=== PATIENT | male | born 1985 | race Caucasian/White ===

== ENCOUNTER 2022-08-09 06:49 | Inpatient (IN) | payer BC ==
[2022-08-02 15:44] LABS: BASOPHILS # (AUTO) 0.1 X10'3 (0-0.2); BASOPHILS % (AUTO) 0.6 % (0-1); EOSINOPHILS # (AUTO) 0.2 X10'3 (0-0.9); EOSINOPHILS % (AUTO) 1.6 % (0-6); LYMPHOCYTES # (AUTO) 2.7 X10'3 (1.1-4.8); MEAN CORPUSCULAR HEMOGLOBIN 28.1 PG (27.0-31.0); MEAN CORPUSCULAR HGB CONC 33.1 g/dL (33.0-36.5); MEAN PLATELET VOLUME 7.9 FL (7.4-10.4); MONOCYTES # (AUTO) 0.6 X10'3 (0-0.9); MONOCYTES % (AUTO) 5.9 % (2-12); NEUTROPHILS # (AUTO) 6.8 X10'3 (1.8-7.7); NEUTROPHILS % (AUTO) 65.9 % (42-75); PRE OP HEMATOCRIT 46.2 % (42.0-52.0); PRE OP HEMOGLOBIN 15.3 g/dL (14.0-17.9); PRE OP PLATELET COUNT 283 X10'3 (140-440); RED BLOOD COUNT 5.43 X10'6 (4.70-6.10); RED CELL DISTRIBUTION WIDTH 14.7 % (11.5-14.5)
[2022-08-02 16:14] LABS: ALBUMIN 3.9 G/DL (3.4-5.0); ALBUMIN/GLOBULIN RATIO 1.1 (1.1-1.5); ALKALINE PHOSPHATASE 63 IU/L (46-116); BLOOD UREA NITROGEN 11 MG/DL (7-18); BUN/CREATININE RATIO 14.1 (5.4-32.0); CHLORIDE 104 MMOL/L (99-107); CREATININE 0.78 MG/DL (0.60-1.10); PRE OP ALT 38 U/L (30-65); PRE OP ANION GAP 6 (8-16); PRE OP AST 23 U/L (10-37); PRE OP BILIRUB, TOTAL 0.3 MG/DL (0.0-1.0); PRE OP GLUCOSE 84 MG/DL (70-104); PRE OP SODIUM 138 MMOL/L (135-145); TOTAL CARBON DIOXIDE 27.6 MMOL/L (24-32); TOTAL PROTEIN 7.4 G/DL (6.4-8.2); eGFR > 90 ML/MIN
[~2022-08-09] VITALS: Ht 185.4 cm; Wt 131.9 kg
[2022-08-09] VITALS (27 sets, daily range): BP systolic 102–134; BP diastolic 66–95
[~2022-08-09 06:49] MED LIST: VALA10002 PO; ceFOXitin 2GM-NS 100mL ADDvant 100 ML IV ONE; famotidine 20mg tablet PO ONE; heparin, porcine 5000 units/ml vial SQ ONE; metroNIDAZOLE-Flagyl 500mg/NS 100ML IVPB IV ONE; ringers solution, lacted 1,000 ML IV SCH
[2022-08-09] MEDS ORDERED: LIDOcaine 1% 30ml preserv. free vial ONE (07:18)
[2022-08-09] MEDS ORDERED: tobramycin 40mg/ml inj ONE (07:18)
[2022-08-09] MEDS ORDERED: BUPIVAcaine 0.5% inj/PF 30 ML ONE (07:19)
[2022-08-09] MEDS ORDERED: povidone-iodine 10% ointment 1 APPLIC APPLIC TP ONE (07:50)
[2022-08-09] MEDS ORDERED: vancomycin/NS 1 GM ADD-VANTAGE 250 ML IV ONE (08:00)
[2022-08-09] MEDS ORDERED: VANCOMYCIN 1,500MG in normal saline IV soln 300 ML IV ONE (08:05)
[2022-08-09] MEDS ORDERED: proCHLORperazine 10 MG/2 ml inj IV PRN (08:10)
[2022-08-09] MEDS ORDERED: ondansetron/PF 4mg/2ml inj IV PRN ×2 (08:10→14:10)
[2022-08-09] MEDS ORDERED: meperidine/PF 25mg/ml syringe IV PRN ×2 (08:10)
[2022-08-09] MEDS ORDERED: morphine 4 MG/ML inj SYRINge IV PRN (08:10)
[2022-08-09] MEDS ORDERED: ringers solution, lacted 1,000 ML IV SCH (08:10)
[2022-08-09] MEDS ORDERED: morphine 2 MG/ML inj. syringe IV PRN (08:10)
[2022-08-09] MEDS ORDERED: sevoflurane 250ml liquid IH ONE (09:12)
[2022-08-09] MEDS ORDERED: dexamethasone sod phosphate 10mg/ml inj ONE (09:12)
[2022-08-09] MEDS ORDERED: rocuronium 10mg/ml inj IV ONE ×2 (09:12→09:33)
[2022-08-09] MEDS ORDERED: midazolam 1 mg/ML 2ml injection ONE (09:21)
[2022-08-09] MEDS ORDERED: fentaNYL /PF 50mcg/ml 5ml ampule ONE ×2 (09:22→11:51)
[2022-08-09] MEDS ORDERED: propofol inj 20 ML IV ONE (09:33)
[2022-08-09] MEDS ORDERED: LIDOcaine 2% (20mg/ml) 5ml vial ONE (09:33)
[2022-08-09] MEDS ORDERED: ondansetron/PF 4mg/2ml inj ONE (09:39)
[2022-08-09] MEDS ORDERED: LIDOCAINE 1%/EPI 1:100,000 inj. 10 ML multi-dose vial ONE (10:05)
[2022-08-09] MEDS ORDERED: INDOCYANINE GREEN 25 MG/10 ML VIAL IV ONE (11:45)
[2022-08-09] MEDS ORDERED: ketorolac trometh. 30mg/ml inj. ONE (13:45)
[2022-08-09] MEDS ORDERED: acetaminophen 1,000mg/100ml IV 100 ML IV ONE (13:45)
--- NOTE | 2022-08-09 14:07 | NUR ---
Received from OR via BED, accompanied by Anesthesiologist DR LYLES and report given by Anesthesiologist AND MARINE ARCHITECT. PT DROWSY, DENIES PAIN, ABDOMEN W/SMALL MIDLINE INCISION W/STERI-STRIPS COVERING, LAP SITES/KARRI INSERTION SITES RLQ AND LLQ W/MEDITAPE COVERING CDI, BOTH KARRI'S TO BULB SX W/S/S DRAINAGE IN BULB, PHILLIPS CATHETER TO GRAVITY DRAINAGE W/YELLOW URINE IN DRAINAGE BAG. Addendum: 08/09/22 at 1439 by Siobhan Mike RN Amended: Links added.
[2022-08-09] MEDS ORDERED: naloxone 0.4 mg/ml inj IV PRN (14:10)
[2022-08-09] MEDS: meperidine/PF 25mg/ml syringe IV PRN ×2 (14:21→15:19)
[2022-08-09] MEDS: HYDROmorph/NS 0.2 mg/ml PCA 100 ML IV SCH ×5 (15:25→23:00)
[2022-08-09] MEDS: ceFOXitin inj 1,000 MG in normal saline 100ml IV soln 100 ML IV SCH ×2 (15:35→23:37)
--- NOTE | 2022-08-09 16:27 | NUR ---
Report called to receiving nurse. Transferred via BED, GLASSES ONLY Belongings, PT WAS WEARING THEM, BLL, CALL LIGHT GIVEN, SIDE RAILS UP X 2, PTS S/O AT BEDSIDE, RECEIVING RN NOTIFIED OF PTS ARRIVAL. Special Issues communicated to receiving nurse. YES. Addendum: 08/09/22 at 1641 by Siobhan Mike RN Amended: Links added.
[2022-08-09] MEDS: metroNIDAZOLE-Flagyl 500mg/NS 100 ML IV SCH (16:32)
[2022-08-09] MEDS ORDERED: VALA10002 PO (16:45)
[2022-08-09] MEDS: potassium CL 20mEq in D5-1/2NS 1,000 ML IV SCH ×2 (17:56→21:54)
[2022-08-09] MEDS: normal saline 1000ml 1,000 ML IV SCH (17:58)
--- NOTE | 2022-08-09 18:14 | NUR ---
Problems reprioritized. Patient report given, questions answered & plan of care reviewed with DAYAN Humphreys.
--- NOTE | 2022-08-09 18:15 | NUR ---
Patient in room [facility]. I have received report from Fani HANLEY and had the opportunity to ask questions and assume patient care.
[2022-08-09] MEDS ORDERED: valacyclovir 500mg tablet PO SCH (20:00)
[2022-08-09] MEDS: ketorolac trometh. 30mg/ml inj. IV SCH (22:06)
[2022-08-09] MEDS: docusate sod 100mg capsule PO SCH (22:08)
[2022-08-09] MEDS: heparin, porcine 5000 units/ml vial SQ SCH (22:10)
[2022-08-10] MEDS: metroNIDAZOLE-Flagyl 500mg/NS 100 ML IV SCH ×3 (00:52→15:46)
[2022-08-10] MEDS: HYDROmorph/NS 0.2 mg/ml PCA 100 ML IV SCH ×12 (00:57→23:00)
[2022-08-10 02:00] VITALS: BP 112/63
[2022-08-10] MEDS: ketorolac trometh. 30mg/ml inj. IV SCH ×4 (03:04→20:19)
--- NOTE | 2022-08-10 06:43 | NUR ---
Patient in room [facility]. I have received report from Juliann HANLEY and had the opportunity to ask questions and assume patient care.
--- NOTE | 2022-08-10 06:45 | NUR ---
Problems reprioritized. Patient report given, questions answered & plan of care reviewed with Leeann HANLEY.
[2022-08-10 07:09] LABS: BASOPHILS % (AUTO) 0.1 % (0-1); EOSINOPHILS % (AUTO) 0 % (0-6); HEMATOCRIT 42.9 % (42.0-52.0); LYMPHOCYTES # (AUTO) 1.4 X10'3 (1.1-4.8); LYMPHOCYTES % (AUTO) 10.6 % (21-51); MEAN CORPUSCULAR HEMOGLOBIN 27.8 PG (27.0-31.0); MEAN CORPUSCULAR HGB CONC 32.7 g/dL (33.0-36.5); MEAN CORPUSCULAR VOLUME 84.9 FL (78-98); MEAN PLATELET VOLUME 8.3 FL (7.4-10.4); MONOCYTES # (AUTO) 1.1 X10'3 (0-0.9); MONOCYTES % (AUTO) 8.6 % (2-12); NEUTROPHILS # (AUTO) 10.5 X10'3 (1.8-7.7); NEUTROPHILS % (AUTO) 80.7 % (42-75); PLATELET COUNT 245 X10'3 (140-440); RED BLOOD COUNT 5.05 X10'6 (4.70-6.10); RED CELL DISTRIBUTION WIDTH 14.5 % (11.5-14.5)
[2022-08-10 07:12] VITALS: BP 103/62
[2022-08-10 07:22] LABS: ALBUMIN 3.2 G/DL (3.4-5.0); ANION GAP 6 (8-16); BLOOD UREA NITROGEN 7 MG/DL (7-18); BUN/CREATININE RATIO 8.9 (5.4-32.0); CALCIUM 7.8 MG/DL (8.5-10.1); CHLORIDE 105 MMOL/L (99-107); CREATININE 0.79 MG/DL (0.60-1.10); GLUCOSE 122 MG/DL (70-104); POTASSIUM 4.3 MMOL/L (3.5-5.1); SODIUM 138 MMOL/L (135-145); TOTAL CARBON DIOXIDE 27.5 MMOL/L (24-32); eGFR > 90 ML/MIN
[2022-08-10] MEDS: docusate sod 100mg capsule PO SCH ×2 (07:53→20:15)
[2022-08-10] MEDS: heparin, porcine 5000 units/ml vial SQ SCH ×2 (07:58→20:20)
[2022-08-10] MEDS: ceFOXitin inj 1,000 MG in normal saline 100ml IV soln 100 ML IV SCH ×3 (08:56→23:20)
[2022-08-10 10:00] VITALS: BP 133/69
[2022-08-10] MEDS: potassium CL 20mEq in D5-1/2NS 1,000 ML IV SCH (10:43)
[2022-08-10] MEDS ORDERED: CADD PCA waste documentation MC SCH (16:30)
[2022-08-10 18:00] VITALS: BP 135/85
--- NOTE | 2022-08-10 18:41 | NUR ---
Problems reprioritized. Patient report given, questions answered & plan of care reviewed with Lashay HANLEY.
[2022-08-10] MEDS: psyllium seed 3.4 gm packet PO SCH (20:15)
[2022-08-10 22:00] VITALS: BP 128/82
[2022-08-11] MEDS: metroNIDAZOLE-Flagyl 500mg/NS 100 ML IV SCH ×3 (00:30→15:57)
[2022-08-11] MEDS: potassium CL 20mEq in D5-1/2NS 1,000 ML IV SCH (00:30)
[2022-08-11] MEDS: HYDROmorph/NS 0.2 mg/ml PCA 100 ML IV SCH ×12 (01:00→23:00)
[2022-08-11] MEDS: ketorolac trometh. 30mg/ml inj. IV SCH ×4 (01:37→20:35)
[2022-08-11 06:00] VITALS: BP 131/80
[2022-08-11 06:03] LABS: BASOPHILS % (AUTO) 0.2 % (0-1); EOSINOPHILS % (AUTO) 0.2 % (0-6); HEMATOCRIT 38.2 % (42.0-52.0); HEMOGLOBIN 12.9 g/dl (14.0-17.9); LYMPHOCYTES # (AUTO) 3.4 X10'3 (1.1-4.8); MEAN CORPUSCULAR HGB CONC 33.9 g/dL (33.0-36.5); MEAN CORPUSCULAR VOLUME 85.4 FL (78-98); MEAN PLATELET VOLUME 8.4 FL (7.4-10.4); MONOCYTES # (AUTO) 0.8 X10'3 (0-0.9); MONOCYTES % (AUTO) 8.6 % (2-12); PLATELET COUNT 220 X10'3 (140-440); RED BLOOD COUNT 4.47 X10'6 (4.70-6.10); RED CELL DISTRIBUTION WIDTH 14.3 % (11.5-14.5); WHITE BLOOD COUNT 9.2 X10'3 (4.5-11.0)
--- NOTE | 2022-08-11 06:32 | NUR ---
Patient in room [facility]. I have received report from Lashay and had the opportunity to ask questions and assume patient care.
[2022-08-11 06:58] LABS: ANION GAP 6 (8-16); BLOOD UREA NITROGEN 5 MG/DL (7-18); BUN/CREATININE RATIO 5.8 (5.4-32.0); CHLORIDE 106 MMOL/L (99-107); CREATININE 0.86 MG/DL (0.60-1.10); GLUCOSE 94 MG/DL (70-104); SODIUM 140 MMOL/L (135-145); TOTAL CARBON DIOXIDE 28.3 MMOL/L (24-32); eGFR > 90 ML/MIN
[2022-08-11] MEDS: ceFOXitin inj 1,000 MG in normal saline 100ml IV soln 100 ML IV SCH ×3 (08:06→23:38)
[2022-08-11] MEDS: heparin, porcine 5000 units/ml vial SQ SCH ×2 (08:09→20:36)
[2022-08-11] MEDS: docusate sod 100mg capsule PO SCH ×2 (08:09→20:35)
[2022-08-11] MEDS ORDERED: magnesium hydroxide 30ml (MOM) UD suspension PO ONE (08:25)
[2022-08-11 08:54] LABS: C-REACTIVE PROTEIN 2.22 MG/DL (0.0-0.5)
[2022-08-11 10:00] VITALS: BP 126/82
[2022-08-11] MEDS: normal saline 1000ml 1,000 ML IV SCH (13:16)
[2022-08-11 18:00] VITALS: BP 159/106
--- NOTE | 2022-08-11 18:25 | NUR ---
Problems reprioritized. Patient report given, questions answered & plan of care reviewed with Jaelyn RN.
--- NOTE | 2022-08-11 19:30 | NUR ---
pt reports ambulating in hallway about 7 times today Addendum: 08/12/22 at 0230 by Peg Conley RN Amended: Links added.
[2022-08-11] MEDS: psyllium seed 3.4 gm packet PO SCH (20:36)
[2022-08-11 22:00] VITALS: BP 168/92
[2022-08-11 22:45] VITALS: BP 137/86
[2022-08-12] MEDS: metroNIDAZOLE-Flagyl 500mg/NS 100 ML IV SCH ×3 (00:28→17:37)
[2022-08-12] MEDS: HYDROmorph/NS 0.2 mg/ml PCA 100 ML IV SCH ×5 (01:00→09:00)
[2022-08-12] MEDS: ketorolac trometh. 30mg/ml inj. IV SCH ×4 (02:09→19:53)
[2022-08-12] MEDS: potassium CL 20mEq in D5-1/2NS 1,000 ML IV SCH (03:52)
[2022-08-12 06:00] VITALS: BP 139/94
[2022-08-12 06:55] LABS: ANION GAP 6 (8-16); BLOOD UREA NITROGEN 5 MG/DL (7-18); BUN/CREATININE RATIO 7.8 (5.4-32.0); C-REACTIVE PROTEIN 3.36 MG/DL (0.0-0.5); CALCIUM 8.2 MG/DL (8.5-10.1); CHLORIDE 105 MMOL/L (99-107); CREATININE 0.64 MG/DL (0.60-1.10); GLUCOSE 96 MG/DL (70-104); POTASSIUM 3.6 MMOL/L (3.5-5.1); SODIUM 139 MMOL/L (135-145); TOTAL CARBON DIOXIDE 27.7 MMOL/L (24-32); eGFR > 90 ML/MIN
[2022-08-12 06:59] LABS: BASOPHILS % (AUTO) 0.3 % (0-1); EOSINOPHILS % (AUTO) 0.6 % (0-6); HEMATOCRIT 40.5 % (42.0-52.0); HEMOGLOBIN 13.7 g/dl (14.0-17.9); LYMPHOCYTES # (AUTO) 2.3 X10'3 (1.1-4.8); LYMPHOCYTES % (AUTO) 26.6 % (21-51); MEAN CORPUSCULAR HEMOGLOBIN 28.7 PG (27.0-31.0); MEAN CORPUSCULAR HGB CONC 33.8 g/dL (33.0-36.5); MEAN CORPUSCULAR VOLUME 85.2 FL (78-98); MEAN PLATELET VOLUME 8.3 FL (7.4-10.4); MONOCYTES # (AUTO) 0.7 X10'3 (0-0.9); MONOCYTES % (AUTO) 7.7 % (2-12); NEUTROPHILS # (AUTO) 5.6 X10'3 (1.8-7.7); NEUTROPHILS % (AUTO) 64.8 % (42-75); PLATELET COUNT 241 X10'3 (140-440); RED BLOOD COUNT 4.76 X10'6 (4.70-6.10); RED CELL DISTRIBUTION WIDTH 14.1 % (11.5-14.5); WHITE BLOOD COUNT 8.7 X10'3 (4.5-11.0)
[2022-08-12] MEDS: heparin, porcine 5000 units/ml vial SQ SCH ×2 (07:40→19:56)
[2022-08-12] MEDS: docusate sod 100mg capsule PO SCH ×2 (07:40→19:55)
[2022-08-12] MEDS: ceFOXitin inj 1,000 MG in normal saline 100ml IV soln 100 ML IV SCH ×2 (09:07→16:26)
[2022-08-12] MEDS ORDERED: HYDROcodone/acetaminophen 5mg/325mg tablet PO PRN (09:15)
[2022-08-12 10:00] VITALS: BP 169/90
[2022-08-12] MEDS: PCA WASTE DOCUMENTATION MC SCH ×2 (11:04→17:41)
[2022-08-12 18:00] VITALS: BP 145/89
--- NOTE | 2022-08-12 18:40 | NUR ---
Patient in room [facility]. I have received report from Nagi HANLEY and had the opportunity to ask questions and assume patient care.
[2022-08-12] MEDS: psyllium seed 3.4 gm packet PO SCH (20:07)
--- NOTE | 2022-08-12 22:57 | NUR ---
Dr Herrera came around earlier at change of shift and removed bilateral KARRI drains and wrote orders to discharge patient home. All discharge paperwork was gone over with patient, PIV removed and belongings collected up. Patient was taken via W/C to lobby accompanied via family members to private vehicle at 2020.
== END 2022-08-12 20:20 | disposition home or self-care (01) | DRG 331 ==
LOC: PAS IN 06:49 → SUR 3N 16:30
PROVIDERS: ADMIT Colon & Rectal Surgery; ATTEND Colon & Rectal Surgery
PROC: 0DNW4ZZ Release Peritoneum, Percutaneous Endoscopic Approach (ICD-10-PCS; 2022-08-09)
PROC: 0DBL4ZZ Excision of Transverse Colon, Percutaneous Endoscopic Approach (ICD-10-PCS; 2022-08-09)
PROC: 8E0W4CZ Robotic Assisted Procedure of Trunk Region, Percutaneous Endoscopic Approach (ICD-10-PCS; 2022-08-09)
PROC: 0DBN4ZZ Excision of Sigmoid Colon, Percutaneous Endoscopic Approach (ICD-10-PCS; principal; 2022-08-09 09:12)
DX: K57.40 Diverticulitis of both small and large intestine with perforation and abscess without bleeding (principal); K66.0 Peritoneal adhesions (postprocedural) (postinfection); G47.30 Sleep apnea, unspecified; E66.01 Morbid (severe) obesity due to excess calories; Z68.38 Body mass index [BMI] 38.0-38.9, adult
CPT/HCPCS: Z7506; Z7508; 36415; 74018; 80048; 80053; 82570; 82948; 85025; 86140; 86885; 86900; 86901; 87081; 93005; A4346; A4355; A4402; A4615; A4618; A6258; A6449; A7000; C1758; G0378; J0131; J0694; J0780; J1100; J1170; J1644; J1885; J2175; J2250; J2405; J2704; J3010; J3260; J3370; J3480; J3490; J7030; J7040; J7120; S0020